=== PATIENT | male | born 1975 | race Caucasian/White ===

== ENCOUNTER 2020-08-13 22:02 | Emergency (ER) | payer SELFPAY ==
--- NOTE | 2020-08-13 22:22 | ER Document Report ---
ED Medical Screen (RME) - General Chief Complaint: Rectal Bleeding Stated Complaint: ABDOMINAL PAIN/DIARRHEA Time Seen by Provider: 08/13/20 22:19 Mode of Arrival: Ambulatory Information source: Patient Notes: Patient is a 45-year-old male comes emergency room complaining of bright red blood per rectum. Patient states it started yesterday but is gotten worse until today. 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 Patient states that the bright red blood is what brought him in tonight along with a little bit of fatigue and some jittering. Patient denies any smoking alcohol or narcotics. Physical examination shows patient to be a well-nourished well-developed 45-year-old male no apparent distress. Cardiac: Regular rate and rhythm were noted on vital signs at 87 bpm auscultation did not show any sign of murmur. Blood pressure was 118/75. Lungs: Bilateral breath sounds clear to auscultation. Abdomen: Bowel sounds present all 4 quads nontender to palpate. I have greeted and performed a rapid initial assessment of this patient. A comprehensive ED assessment and evaluation of the patient, analysis of test results and completion of the medical decision making process will be conducted by additional ED providers. Dictation of this chart was performed using voice recognition software; therefore, there may be some unintended grammatical errors. - Related Data Allergies/Adverse Reactions: codeine Allergy (Verified 08/13/20 22:20) nut - unspecified Allergy (Verified 08/13/20 22:20) Past Medical History - Social History Chew tobacco use (# tins/day): No Frequency of alcohol use: None Drug Abuse: None Physical Exam - Vital signs Vitals: Temp Pulse BP Pulse Ox 97.9 F 87 118/75 97 08/13/20 22:07 08/13/20 22:07 08/13/20 22:07 08/13/20 22:07 Course - Vital Signs Vital signs: Temp Pulse Resp BP Pulse Ox 97.9 F 87 118/75 97 08/13/20 22:18 08/13/20 22:07 08/13/20 22:07 08/13/20 22:07
[2020-08-13] MEDS ORDERED: NORMAL SALINE 1000 ML 1,000 ML IV ONE (23:31)
[2020-08-13 23:32] LABS: ABSOLUTE BASOPHILS # (AUTO) 0.1 10^3/uL (0.0-0.2); ABSOLUTE EOSINOPHILS # (AUTO) 0.4 10^3/uL (0.0-0.6); ABSOLUTE MONOCYTES (AUTO) 0.9 10^3/uL (0.1-1.4); ABSOLUTE NEUT (AUTO) 4.1 10^3/uL (1.7-8.2); BASOPHILS % (AUTO) 1.2 % (0-2); EOSINOPHILS % (AUTO) 5.2 % (0-6); HEMATOCRIT 43.4 % (37.9-51.0); LYMPHOCYTES % (AUTO) 26.6 % (13-45); MEAN CORPUSCULAR HEMOGLOBIN 30.6 pg (27.0-33.4); MEAN CORPUSCULAR HGB CONC 34.5 g/dL (32.0-36.0); MEAN CORPUSCULAR VOLUME 89 fl (80-97); MONOCYTES % (AUTO) 12.1 % (3-13); PLATELET COUNT 131 10^3/uL (150-450); RED BLOOD COUNT 4.89 10^6/uL (4.35-5.55); RED CELL DISTRIBUTION WIDTH 12.9 % (11.5-14.0); SEGMENTED NEUTROPHILS % (AUTO) 54.9 % (42-78); TOTAL CELLS COUNTED % (AUTO) 100 %; WHITE BLOOD COUNT 7.5 10^3/uL (4.0-10.5)
--- NOTE | 2020-08-13 23:36 | ER Document Report ---
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 Patient says he has an extensive GI history and was diagnosed with mixed type IBS. Has been going to GI specialist for the past 11 years with multiple prior endoscopies and colonoscopies. Patient says he has an anal prolapse and often has to reduce it when trying to have a bowel movement says he can spend upwards of 1 to 2 hours in the bathroom having a bowel movement which is normal for him. Today while having a bowel movement he noticed some bright red blood in the toilet and on the toilet paper. This resolved soon after having a bowel movement he has not had any bleeding since. He denies any anal or rectal pain, swelling. Denies melena. He is not on blood thinners. He recently moved here and has not established care with a GI doctor yet. He denies abdominal pain, nausea vomiting, fever, chills, flank pain. ROS: Constitutional: no fevers. HEENT: no DOUGLAS, sore throat, or vision changes. CV: no chest pain or palpitations. Resp: no cough or SOB. GI: Rectal bleeding- resolved : no dysuria, hematuria, or incont. MSK: no back pain, no joint swelling/redness. Skin: no rashes or itching. Neuro: no seizures, weakness, numbness, or confusion. Hematological: no ecchymosis or easy bleeding. Endocrine: no polyuria/polydipsia, no heat/cold intolerance. Psych: no SI/HI, AH/VH or memory loss. PMHx: Reviewed and agree as charted by RN. PSHx: Reviewed and agree as charted by RN. SOCHx: Reviewed and agree as charted by RN. FHX: No significant familial comorbid conditions directly related to patient complaint Current Medications: Reviewed and agree with the patient medications as charted by the RN. Allergies: Reviewed and agree with the listed allergies as charted by the RN Physical Exam: Vitals: Reviewed in chart as documented by RN. General: Alert and in NAD. Head: Normocephalic; atraumatic Eyes: PERRLA, Conjunctivae clear sclerae non-icteric bilat ENT: no soft palate swelling or uvular deviation Neck: trachea midline, no unilateral swelling/tenderness/lymphadenopathy CV: RRR, no M/R/G; symmetric distal pulses Resp: respirations even and unlabored, CTA bilat. GI: abd soft and nondistended. NTTP. normal BS. no masses/HSM. no CVAT bilat rectal-patient declined exam initially. MSK: FROM of all extremities. No midline CTL spine tenderness/deformity Skin: warm, moist, good turgor. no rash/lesions Neuro: Alert and oriented X 4. following CN 2-12 intact. no unilateral weakness/numbness Psych: No SI/HI or AH/VH. ED Results: Medical Decision-Making: Differential includes PUD, inflammatory bowel disease, IBS, hemorrhoids, anal fissure, colitis, diverticulitis, HGE, viral syndrome, abscess, laceration, diverticula bleeding, UGIB, LGIB, upper GI bleed, ect plan- labs, UA, IVF, hemoccult prn. prn imaging. prn type and screen. prn GI c onsult. pt is hemodynamically stable. vitals wnl. he is alert and oriented and nontoxic. abdominal exam is benign. no signs or concerns of infection or bowel ischemia. He has not had any further rectal bleeding other than the singular episode. Hgb is 15, wbc normal. plt 131- slightly low, no other comparisons. pt has no signs of massive GI hemorrhage requiring transfusion, admission, or emergent GI consult. Pt regularly strains for 1-2 hours while having a BM couple with repeated digital anal prolapse reductions likely caused the brief episode of bleeding. He recieved 1 liter IV NS in the ED. I will continue to monitor the pt in the ED for re-bleeding or hemodynamic compromise. If pt remains stable, likely d/c home w/ GI f/u to be scoped. return factors discussed. pt agrees w/ the plan of care. - Related Data Allergies/Adverse Reactions: codeine Allergy (Verified 08/13/20 22:20) nut - unspecified Allergy (Verified 08/13/20 22:20) Past Medical History - General Information source: Patient - Social History Smoking Status: Never Smoker Chew tobacco use (# tins/day): No Frequency of alcohol use: None Drug Abuse: None Family History: Reviewed & Not Pertinent Patient has homicidal ideation: No Physical Exam - Vital signs Vitals: Temp Pulse BP Pulse Ox 97.9 F 87 118/75 97 08/13/20 22:07 08/13/20 22:07 08/13/20 22:07 08/13/20 22:07 Course - Re-evaluation Re-evalutation: 08/14/20 02:21 neg orthostatic vital signs. rectal exam at bedside- no active bleeding, fissure, or hemorrhoids. rectal tone normal. no anal prolapse. d/c w/ plan as noted in MDM. pt agrees w/ plan of care - Vital Signs Vital signs: Temp Pulse Resp BP Pulse Ox 97.9 F 79 119/61 97 08/13/20 22:18 08/14/20 01:24 08/14/20 01:24 08/13/20 22:07 - Laboratory Results Result Diagrams: 08/13/20 23:21 08/13/20 23:21 Laboratory Results Interpreted: 08/13/20 08/13/20 23:21 23:21 Plt Count 131 L Sodium 136.3 L AST 16 L Critical Laboratory Results Reviewed: No Critical Results - Radiology Results Critical Radiology Results Reviewed: No Critical Results Discharge - Discharge Clinical Impression: Bright red blood per rectum Clinical Impression: (Ruled Out): Rectal bleed Condition: Stable Disposition: HOME, SELF-CARE Instructions: Rectal Bleeding, Unclear Cause ([facility]) Additional Instructions: call gastroenterology to schedule an appointment for follow up. return to the ER if you have worsening bleeding, pass out, severe abdominal pain, throwing up blood, or fevers. Referrals: GASTROENTEROLOGY [Provider Group] - Follow up as needed
[2020-08-13 23:54] LABS: ALBUMIN 3.8 g/dL (3.5-5.0); ALKALINE PHOSPHATASE 59 U/L (38-126); ANION GAP 5 (5-19); ASPARTATE AMINO TRANSFERASE 16 U/L (17-59); BILIRUBIN,DIRECT 0.1 mg/dL (0.0-0.4); BILIRUBIN,TOTAL 0.4 mg/dL (0.2-1.3); BLOOD UREA NITROGEN 17 mg/dL (7-20); CALCIUM 9.3 mg/dL (8.4-10.2); CARBON DIOXIDE 30 mmol/L (22-30); CHLORIDE 101 mmol/L (98-107); GLUCOSE 95 mg/dL (75-110); POTASSIUM 3.9 mmol/L (3.6-5.0); TOTAL PROTEIN 6.8 g/dL (6.3-8.2)
[2020-08-14 01:34] LABS: INTERNATIONAL RATION (INR) 0.97; PROTHROMBIN TIME 13.1 SEC (11.4-15.4)
[2020-08-14 01:35] LABS: APPEARANCE,URINE CLEAR; BILIRUBIN,URINE NEGATIVE (NEGATIVE); COLOR,URINE YELLOW; GLUCOSE, URINE NEGATIVE (NEGATIVE); KETONES,URINE NEGATIVE (NEGATIVE); LEUKOCYTE ESTERASE,URINE NEGATIVE (NEGATIVE); NITRITE,URINE NEGATIVE (NEGATIVE); PROTEIN,URINE NEGATIVE (NEGATIVE); URINE SPECIFIC GRAVITY 1.019; UROBILINOGEN,URINE NEGATIVE mg/dL (<2.0)
[2020-08-14 02:39] VITALS: BP 117/61
== END 2020-08-14 02:43 | disposition home or self-care (01) ==
LOC: ER 22:02
DX: Z03.89 Encounter for observation for other suspected diseases and conditions ruled out (principal); K58.2 Mixed irritable bowel syndrome; Z88.6 Allergy status to analgesic agent; Z88.5 Allergy status to narcotic agent; Z91.018 Allergy to other foods
CPT/HCPCS: 99284; 96360; 36415; 83690; 85025; 85610; 80053; 81001; J7030